=== PATIENT | female | born 2000 | race Caucasian/White ===

== ENCOUNTER → 2023-04-11 | Outpatient (CLI) | payer OTHER ==
--- NOTE | 2023-04-11 17:13 | US ---
EXAMINATION TYPE: US pelvic complete DATE OF EXAM: 04/11/2023 COMPARISON: NONE CLINICAL INDICATION: Female, 22 years old with history of N92.3 OVULATION BLEEDING; bleeding in betwe en menses. TECHNIQUE: Transabdominal sonographic images of the pelvis were acquired. EXAM MEASUREMENTS: Uterus: 7.3 x 2.4 x 3.7 cm Endometrial Stripe: .6 cm Right Ovary: 3.2 x 1.1 x 2.1 cm Left Ovary: 2.8 x 1.4 x 1.5 cm 1. Uterus: Anteverted and otherwise wnl 2. Endometrium: wnl 3. Right Ovary: wnl 4. Left Ovary: wnl 5. Bilateral Adnexa: wnl 6. Posterior cul-de-sac: wnl IMPRESSION: Unremarkable transabdominal sonographic examination of the pelvis.
== END | disposition home or self-care (01) ==
LOC: RADUSWWP 12:02
PROVIDERS: ATTEND Obstetrics & Gynecology
DX: N92.3 Ovulation bleeding (principal)
CPT/HCPCS: 76856